=== PATIENT | male | born 1945 | race Caucasian/White ===

== ENCOUNTER 2018-04-02 06:26 | Day surgery (SDC) | payer OTHER, MEDICARE ==
[2018-03-28 13:56] VITALS: BMI 21.6
[2018-04-02 07:08] VITALS: TEMP 97.6
[2018-04-02] MEDS ORDERED: TETRACAINE 0.5% OPHTH SOLN 2 ML BOTTLE ONE (07:11)
[2018-04-02] MEDS ORDERED: POVIDONE-IODINE 5% OPHTHALMIC PREP 30 ML SOLUTION ONE (07:11)
[2018-04-02] MEDS ORDERED: ERYTHROMYCIN 0.5% OPHTHALMIC OINTMENT 3.5 GM TUBE ONE (07:11)
[2018-04-02] MEDS ORDERED: LIDOCAINE 1%/EPI 1:100000 (20 ML MULTI DOSE VIAL) ONE (07:11)
[2018-04-02] MEDS ORDERED: BUPIVACAINE HCL/PF 0.5% (5MG/ML) 10 ML VIAL ONE (07:11)
[2018-04-02] MEDS ORDERED: MIDAZOLAM HCL 2 MG/2 ML SINGLE DOSE VIAL ONE (07:18)
[2018-04-02] MEDS ORDERED: SUCCINYLCHOLINE CHLORIDE 200 MG/10 ML VIAL ONE (07:45)
[2018-04-02] MEDS ORDERED: PROPOFOL 20 ML ONE ×3 (07:45)
[2018-04-02] MEDS ORDERED: POVIDONE-IODINE 5% OPHTHALMIC PREP 30 ML SOLUTION OU ONE (07:55)
[2018-04-02] MEDS ORDERED: ceFAZolin SODIUM 1 GM VIAL ONE (08:10)
[2018-04-02] MEDS ORDERED: ONDANSETRON 4 MG/2 ML VIAL ONE (08:10)
[2018-04-02] MEDS ORDERED: DEXAMETHASONE SOD PHOSPHATE 4 MG/1 ML VIAL ONE (08:10)
[2018-04-02] MEDS ORDERED: ERYTHROMYCIN 0.5% OPHTHALMIC OINTMENT 3.5 GM TUBE OD ONE ×2 (08:23→09:06)
[2018-04-02] MEDS ORDERED: ONDANSETRON 4 MG/2 ML VIAL IVPUSH PRN (09:18)
[2018-04-02 10:52] VITALS: BP 110/56; PULSE 49
--- NOTE | 2018-04-02 10:54 | OP ---
DATE OF OPERATION: 04/02/2018 PREOPERATIVE DIAGNOSIS: Defect, status post excision carcinoma, right lower lid, right lateral canthus. POSTOPERATIVE DIAGNOSIS: Defect, status post excision carcinoma, right lower lid, right lateral canthus. PROCEDURE: 1. Debridement and tailoring of defect. 2. Myocutaneous flap advanced in rotation with deep fixation to the right lower lid and right lateral canthus. SURGEON: Akash Miller MD ANESTHESIA: Local with sedation. COMPLICATONS: None. ESTIMATED BLOOD LOSS: 3-5 mL. OPERATION REPORT: Patient was brought to the operating room, placed on the operating room table. Vital signs monitored by Anesthesia. Tetracaine was placed in both eyes. The wound was examined, tension in the cheek was examined, and it was determined some debrided. A time-out was performed. After which, a 50/50 mixture of 2% Xylocaine with 1:100,000 epinephrine, 0.5% Marcaine, was injected diffusely throughout the right cheek toward the pretragal region, right lower lid and right lateral canthus. The patient was prepped and draped in the usual sterile fashion exposing both eyes. Tension was taken off of the right cheek and right lower lid being careful not to increase the tension with draping. Then, a potential myocutaneous flap was marked out in a rhomboid type fashion extending down inferiorly and laterally into the cheek. This was subsequently incised with a 15-blade and it was elevated in the deep dermal plane, and then, dissection was carried out in the premuscular plane far laterally towards the pretracheal region to allow advancement and rotation of the cervical facial type flap advancement toward the lower lid without putting tension on the lower lid. Cervical facial flap was then advanced into the defect, rotated. It was supported there with a double-arm 4-0 Prolene suture, which was advanced into the periosteum at the deep inferior orbital rim and then out through the skin muscle flap and tied through a bolster to help take the tension off the advanced flap. The rotated flap was thinned as necessary to meet the canthal and lower eyelid skin as it extended from the canthus to the lower eyelid right at the lateral commissure, and then, it was secured with subcuticular 6-0 chromic sutures throughout its parameter and then, with interrupted and running 6-0 plain suture, plastic technique, to close the skin. The advanced flap which had been supported with a Prolene suture, was also closed with deep 4-0 chromic suture in a donor site and then, closed with 6-0 chromic superficially and interrupted and running 6-0 plain suture on the skin. The created a nice reconstruction of the defect on the right lower lid and right lateral canthus without any undue tension on the right lower lid and any induced ectropion. Erythromycin ointment was placed on all the sutures, and the patient was taken to the recovery room in stable condition. AKASH MILLER M.D. [id number]
== END 2018-04-02 10:45 | disposition home or self-care (01) ==
LOC: FASU 06:26
PROVIDERS: ATTEND Ophthalmology
PROC: 0KX00ZZ Transfer Head Muscle, Open Approach (ICD-10-PCS; 2018-04-02)
PROC: 08SQ0ZZ Reposition Right Lower Eyelid, Open Approach (ICD-10-PCS; principal; 2018-04-02 08:09)
DX: C44.112 Basal cell carcinoma of skin of right eyelid, including canthus (principal)
CPT/HCPCS: 94760